=== PATIENT | female | born 1990 | race Two or more races ===

== ENCOUNTER 2017-02-27 20:35 | Emergency (ER) | payer BC, OTHER ==
[2017-02-27 21:18] VITALS: BP 124/77
[2017-02-27] MEDS ORDERED: predniSONE TAB* 20 MG PO ONE (21:33)
[2017-02-27] MEDS ORDERED: Amoxicillin CAP* 500 MG PO ONE (21:33)
--- NOTE | 2017-02-27 21:41 | UC ---
Ear Complaint HPI - HPI Summary HPI Summary: 27 yo female with bilateral ear pain and popping x >1 mon has been on flonase x 2 weeks getting worse - History of Current Complaint Chief Complaint: UCEar Stated Complaint: EAR PAIN AND SORE THROAT Time Seen by Provider: 02/27/17 21:26 Hx Obtained From: Patient Hx Last Menstrual Period: 02/14/17 Onset/Duration: Gradual Onset, Worse Since - 2 weeks Severity Initially: Mild Severity Currently: Mild Pain Intensity: 2 - increases at times and wakes her up Pain Scale Used: 0-10 Numeric Aggravating Factors: Nothing Alleviating Factors: Nothing Associated Signs/Symptoms: Positive: URI Symptoms - mild - Allergies/Home Medications Allergies/Adverse Reactions: Allergies Allergy/AdvReac Type Severity Reaction Status Date / Time hay fever Allergy Congestion Uncoded 02/27/17 21:18 Home Medications: Home Medications Meloxicam [Mobic] 15 mg PO DAILY 02/27/17 [History Confirmed 02/27/17] PMH/Surg Hx/FS Hx/Imm Hx Previously Healthy: Yes - Surgical History Surgical History: None - Family History Known Family History: Negative: Cardiac Disease, Hypertension, Diabetes - Social History Alcohol Use: Weekly Alcohol Amount: 8 Substance Use Type: None Smoking Status (MU): Never Smoked Tobacco Review of Systems Constitutional: Negative Skin: Negative Eyes: Negative ENT: Ear Ache Respiratory: Negative Cardiovascular: Negative Gastrointestinal: Negative Genitourinary: Negative Motor: Negative Neurovascular: Negative Musculoskeletal: Negative Neurological: Negative Psychological: Negative All Other Systems Reviewed And Are Negative: Yes Physical Exam Triage Information Reviewed: Yes Appearance: Well-Appearing, No Pain Distress, Well-Nourished Vital Signs: Initial Vital Signs Temp 98.4 F 02/27/17 21:16 Pulse 57 02/27/17 21:16 Resp 16 02/27/17 21:16 BP 124/77 02/27/17 21:16 Pulse Ox 100 02/27/17 21:16 Eye Exam: Normal Eyes: Positive: Conjunctiva Clear ENT: Positive: Hearing grossly normal, TM bulging. Negative: Nasal congestion, Nasal drainage, TM dull, TM red, Tonsillar exudate, Trismus, Muffled/hoarse voice Dental Exam: Normal Neck exam: Normal Respiratory Exam: Normal Cardiovascular: Positive: RRR, No Murmur Musculoskeletal: Positive: ROM Intact, No Edema Neurological: Positive: Alert Psychological Exam: Normal Skin Exam: Normal Ear Complaint Course/Dx - Differential Dx/Diagnosis Provider Diagnoses: bilateral serous otitis media Discharge - Discharge Plan Condition: Stable Disposition: HOME Prescriptions: Amoxicillin (*) [Amoxicillin 875 MG (*)] 875 mg PO BID #20 tab Prednisone [Deltasone] 40 mg PO DAILY #8 tab Patient Education Materials: Serous Otitis Media (ED) Referrals: Natalie Huitron [Primary Care Provider] - 2 Weeks
== END 2017-02-27 21:59 | disposition home or self-care (01) ==
LOC: UCCORT 20:35
DX: H65.93 Unspecified nonsuppurative otitis media, bilateral (principal); J02.9 Acute pharyngitis, unspecified
CPT/HCPCS: 99212; A9270-GY; G0463; J7512